=== PATIENT | female | born 1985 | race Hispanic/Latino ===

== ENCOUNTER 2017-10-10 20:43 | Inpatient (IN) | payer MEDICARE ==
[~2017-10-10] VITALS: Ht 157.5 cm; Wt 74.4 kg
[~2017-10-10 20:43] MED LIST: EPHEDRINE SULFATE 50 MG/ML AMPULE IV ONE; IRON-23 PO; ONDANSETRON HCL 4 MG/2 ML VIAL IVP ONE; PREN1TAB89 PO; TYL3 PO
[2017-10-10 21:23] LABS: APPEARANCE,URINE Cloudy (CLEAR); BILIRUBIN,URINE Negative (NEGATIVE); COLOR,URINE Dark Yellow (YELLOW); GLUCOSE, URINE (UA) Negative (NEGATIVE); KETONES,URINE Trace mg/dL (NEGATIVE); LEUKOCYTE ESTERASE ,URINE Large (NEGATIVE); NITRATE,URINE Negative (NEGATIVE); OCCULT BLOOD,URINE Large (NEGATIVE); PH,URINE 6.5 (5.0-8.0); PROTEIN,URINE POS 1+ (NEGATIVE)
[2017-10-10] MEDS ORDERED: LACTATED RINGERS 1000ML 1,000 ML IV ONE (21:23)
[2017-10-10 21:29] LABS: BACTERIA,URINE Few /HPF (None Seen); MUCUS,URINE Moderate LPF (None Seen); SQUAMOUS EPITHELIAL CELL,UR 30-50 /HPF (0-2)
[2017-10-10] MEDS ORDERED: AMPICILLIN 2GM+NS 100ML 100 ML IV SCH (22:15)
[2017-10-10] MEDS ORDERED: LACTATED RINGERS 1000ML 1,000 ML IV PRN (22:43)
[2017-10-10 22:52] LABS: HEMATOCRIT 28.7 % (36-48); MEAN CORPUSCULAR HEMOGLOBIN 23.8 pg (27.0-33.0); MEAN CORPUSCULAR HGB CONC 31.6 g/dL (32.0-36.0); MEAN CORPUSCULAR VOLUME 75.3 fL (79-99); PLATELET COUNT (AUTO) 311 K/uL (130-400); RED CELL DISTRIBUTION WIDTH 19.7 % (11.0-15.5); WHITE BLOOD COUNT (AUTO) 12.3 K/uL (4.8-10.8)
[2017-10-10] MEDS ORDERED: CEFAZOLIN SODIUM 1 GM VIAL ONE (23:01)
[2017-10-10] MEDS ORDERED: CITRIC ACID/SODIUM CITRATE 30 ML UDCUP ONE ×2 (23:32→23:38)
[2017-10-10] MEDS ORDERED: ONDANSETRON HCL MDV 20ML 2 MG/ML VIAL ONE (23:33)
[2017-10-10] MEDS ORDERED: METOCLOPRAMIDE 10 MG/2 ML VIAL ONE (23:34)
[2017-10-10] MEDS ORDERED: DURAMORPH PF1 MG/ML 10ML AMP IV ONE (23:36)
[2017-10-11] MEDS ORDERED: MIDAZOLAM HCL 1 MG/ML 2ML VIAL ONE (00:01)
[2017-10-11] MEDS ORDERED: KETAMINE HCL 100 MG/ML 5ML VIAL IJ ONE (00:02)
[2017-10-11] MEDS ORDERED: PROMETHAZINE HCL 25 MG/ML 1ML AMPULE IM PRN ×2 (01:45→08:15)
[2017-10-11] MEDS ORDERED: DEXTROSE 5 %-0.45 % NACL 1,000 ML IV PRN (01:45)
[2017-10-11] MEDS ORDERED: SODIUM CHLORIDE 0.9% 10 ML VIAL IVP PRN (01:45)
[2017-10-11] MEDS: MEPERIDINE-PF 75 MG/ML SYG IM PRN ×2 (02:11→10:50)
[2017-10-11 02:14] LABS: AMPHET/METH SCREEN,URINE NEGATIVE (NEGATIVE); BARBITURATE SCREEN, URINE NEGATIVE (NEGATIVE); BENZODIAZEPINES SCREEN,URINE NEGATIVE (NEGATIVE); CANNABINOID SCREEN,URINE NEGATIVE (NEGATIVE); COCAINE SCREEN,URINE NEGATIVE (NEGATIVE); OPIATE SCREEN,URINE NEGATIVE (NEGATIVE); PHENCYCLIDINE SCREEN,URINE NEGATIVE (NEGATIVE)
[2017-10-11] MEDS ORDERED: OXYTOCIN 10 USP UNITS/ML ONE (02:29)
[2017-10-11] MEDS ORDERED: LACTATED RINGERS 1000ML 1,000 ML IV ONE (02:29)
[2017-10-11] MEDS: OXYTOCIN-LR 20 UNITS/1000 ML 1,000 ML IV SCH ×2 (02:38→22:45)
[2017-10-11 02:53] LABS: HEMATOCRIT 25.3 % (36-48)
[2017-10-11 03:15] VITALS: BP 139/82
[2017-10-11 04:30] VITALS: BP 136/75
[2017-10-11] MEDS ORDERED: KETOROLAC TROMETHAMINE 30MG/ML IV PRN (04:30)
[2017-10-11] MEDS: AMPICILLIN 1GM+NS 50ML 50 ML IV SCH ×2 (06:15→10:15)
[2017-10-11] MEDS: LACTATED RINGERS 1000ML 1,000 ML IV SCH (06:15)
[2017-10-11] MEDS ORDERED: EPHEDRINE SULFATE 50 MG/ML AMPULE IVP PRN (08:15)
[2017-10-11] MEDS ORDERED: ONDANSETRON HCL 4 MG/2 ML 8 MG in SODIUM CHLORIDE 0.9% 50 ML IVP NR (08:15)
[2017-10-11] MEDS ORDERED: HYDROCODONE/ACETAMINOPHEN 5/325 MG TAB PO PRN (08:15)
[2017-10-11] MEDS ORDERED: DiphenhydrAMINE HCL 50 MG/ML VIAL IVP PRN (08:15)
[2017-10-11] MEDS ORDERED: MORPHINE SULFATE 2 MG/ML 1ML SYG IVP PRN (08:15)
[2017-10-11] MEDS ORDERED: METOCLOPRAMIDE 10 MG/2 ML VIAL IVP PRN (08:15)
[2017-10-11] MEDS ORDERED: ONDANSETRON HCL 4 MG/2 ML VIAL IVP PRN ×2 (08:15)
[2017-10-11] MEDS ORDERED: NALOXONE HCL 0.4 MG/1 ML ML IVP PRN ×2 (08:15)
[2017-10-11 08:18] LABS: RAPID PLASMA REAGIN NONREACTIVE (NONREACTIVE)
[2017-10-11] MEDS: HYDROCODONE/ACETAMINOPHEN 5/325 MG TAB PO PRN (08:19)
[2017-10-11 12:22] VITALS: BP 125/69
[2017-10-11] MEDS ORDERED: BISACODYL 10 MG SUPP.RECT RC PRN (12:30)
[2017-10-11] MEDS ORDERED: LANOLIN 30GM OINTMENT TP PRN (12:30)
[2017-10-11] MEDS ORDERED: ONDANSETRON HCL MDV 20ML 2 MG/ML VIAL IVP PRN ×2 (12:58→13:01)
[2017-10-11] MEDS ORDERED: ONDANSETRON HCL MDV 20ML 8 MG in SODIUM CHLORIDE 0.9% 50 ML IVP NR (12:59)
[2017-10-11] MEDS: IBUPROFEN 800 MG TAB PO SCH (13:57)
[2017-10-11] MEDS: SIMETHICONE 80 MG TAB.CHEW PO PRN ×2 (13:57→20:37)
[2017-10-11 15:43] VITALS: BP 100/65
[2017-10-11] MEDS: ACETAMINOPHEN-CODEINE 300/30MG TAB PO PRN ×2 (18:13→22:37)
[2017-10-11 19:54] VITALS: BP 113/67
[2017-10-11] MEDS: DOCUSATE SODIUM 100 MG CAP PO SCH (20:37)
[2017-10-11 21:55] LABS: HEMATOCRIT 21.8 % (36-48); MEAN CORPUSCULAR HEMOGLOBIN 24.9 pg (27.0-33.0); MEAN CORPUSCULAR HGB CONC 32.8 g/dL (32.0-36.0); MEAN CORPUSCULAR VOLUME 75.8 fL (79-99); PLATELET COUNT (AUTO) 236 K/uL (130-400); RED BLOOD CELL COUNT(AUTO) 2.88 MIL/uL (4.00-5.50); RED CELL DISTRIBUTION WIDTH 19.6 % (11.0-15.5); WHITE BLOOD COUNT (AUTO) 14.8 K/uL (4.8-10.8)
[2017-10-11 23:07] VITALS: BP 138/87
[2017-10-12] MEDS: IBUPROFEN 800 MG TAB PO SCH ×3 (00:28→16:54)
[2017-10-12] MEDS ORDERED: SODIUM CHLORIDE 0.9% 1000ML 1,000 ML IV SCH (00:45)
[2017-10-12] MEDS: ACETAMINOPHEN-CODEINE 300/30MG TAB PO PRN ×2 (02:24→13:15)
[2017-10-12 03:18] VITALS: BP 105/67
[2017-10-12 06:50] LABS: HEMATOCRIT 23.1 % (36-48); MEAN CORPUSCULAR HEMOGLOBIN 24.4 pg (27.0-33.0); MEAN CORPUSCULAR HGB CONC 32.2 g/dL (32.0-36.0); MEAN CORPUSCULAR VOLUME 75.9 fL (79-99); PLATELET COUNT (AUTO) 227 K/uL (130-400); RED BLOOD CELL COUNT(AUTO) 3.05 MIL/uL (4.00-5.50); RED CELL DISTRIBUTION WIDTH 19.4 % (11.0-15.5); WHITE BLOOD COUNT (AUTO) 13.3 K/uL (4.8-10.8)
[2017-10-12 07:35] VITALS: BP 106/54
[2017-10-12] MEDS: DOCUSATE SODIUM 100 MG CAP PO SCH ×2 (09:01→20:34)
[2017-10-12] MEDS: DIPH,PERTUSS(ACELL),TET VAC/PF 0.5 ML VIAL IM SCH ×2 (09:01→12:30)
[2017-10-12] MEDS: SIMETHICONE 80 MG TAB.CHEW PO PRN ×2 (09:01→20:35)
[2017-10-12 10:22] LABS: HEPATITIS Bs ANTIGEN SCREEN P Negative (Negative)
[2017-10-12 11:42] VITALS: BP 128/77
[2017-10-12] MEDS: AMPICILLIN 1GM+NS 50ML 50 ML IV SCH ×2 (14:15→18:15)
[2017-10-12] MEDS: LACTATED RINGERS 1000ML 1,000 ML IV SCH (14:15)
[2017-10-12 15:46] VITALS: BP 131/81
[2017-10-12] MEDS: MEASLES/MUMPS/RUBELLA VACCINE, LIVE 0.5 ML/VIAL SQ SCH (16:55)
[2017-10-12 19:38] VITALS: BP 123/78
[2017-10-12] MEDS: HYDROCODONE/ACETAMINOPHEN 5/325 MG TAB PO PRN (20:35)
[2017-10-12 23:25] VITALS: BP 128/83
[2017-10-13] MEDS: AMPICILLIN 1GM+NS 50ML 50 ML IV SCH ×3 (02:15→03:15)
[2017-10-13] MEDS: IBUPROFEN 800 MG TAB PO SCH ×3 (02:29→11:55)
[2017-10-13] MEDS: LACTATED RINGERS 1000ML 1,000 ML IV SCH ×2 (02:32→03:14)
[2017-10-13] MEDS: MEASLES/MUMPS/RUBELLA VACCINE, LIVE 0.5 ML/VIAL SQ SCH (02:32)
[2017-10-13] MEDS: DIPH,PERTUSS(ACELL),TET VAC/PF 0.5 ML VIAL IM SCH (03:35)
[2017-10-13 03:52] VITALS: BP 111/78
[2017-10-13] MEDS: HYDROCODONE/ACETAMINOPHEN 5/325 MG TAB PO PRN ×2 (04:18→08:56)
[2017-10-13 07:00] VITALS: BP 128/78
[2017-10-13] MEDS: DOCUSATE SODIUM 100 MG CAP PO SCH (08:54)
[2017-10-13] MEDS: SIMETHICONE 80 MG TAB.CHEW PO PRN (08:54)
[2017-10-13 11:00] VITALS: BP 125/68
== END 2017-10-13 13:15 | disposition home or self-care (01) | DRG 766 ==
LOC: EDH 20:43 → LDH 20:44 → OBSVTOIN 22:43 → WSH 10-11 03:10
PROVIDERS: ADMIT Obstetrics & Gynecology; ATTEND Obstetrics & Gynecology
PROC: 3E0234Z Introduction of Serum, Toxoid and Vaccine into Muscle, Percutaneous Approach (ICD-10-PCS; 2017-10-11)
PROC: 3E0134Z Introduction of Serum, Toxoid and Vaccine into Subcutaneous Tissue, Percutaneous Approach (ICD-10-PCS; 2017-10-11)
PROC: 30233N1 Transfusion of Nonautologous Red Blood Cells into Peripheral Vein, Percutaneous Approach (ICD-10-PCS; 2017-10-11)
PROC: 10D00Z0 Extraction of Products of Conception, High, Open Approach (ICD-10-PCS; principal; 2017-10-11 00:02)
DX: O32.1XX0 Maternal care for breech presentation, not applicable or unspecified (principal); Z23 Encounter for immunization; Z37.0 Single live birth; Z3A.38 38 weeks gestation of pregnancy
CPT/HCPCS: 36415; 36430; 59510; 76805; 80305; 81001; 82948; 85014; 85018; 85027; 86592; 86701; 86850; 86900; 86901; 86922; 87340; 87390; 90707; 90715; 96360; 96361; A4344; A4450; A4606; J0290; J0690; J1885; J2175; J2250; J2274; J2405; J2550; J2590; J2765; J3490; J7030; J7120; P9016

== ENCOUNTER 2018-09-21 09:35 | Inpatient (IN) | payer MEDICARE | END 2018-09-22 16:20 | disposition home or self-care (01) | LOC: EDH 09:35 → LDH 09:48 → WSH 12:02 | PROC: 10E0XZZ Delivery of Products of Conception, External Approach (ICD-10-PCS; principal; ~2018-09-21) | DX: O80 Encounter for full-term uncomplicated delivery (principal); Z37.0 Single live birth; Z3A.38 38 weeks gestation of pregnancy ==